=== PATIENT | female | born 1985 | race Caucasian/White ===

== ENCOUNTER 2022-01-23 10:57 | Emergency (ER) | payer SELFPAY ==
[~2022-01-23] VITALS: Ht 170.2 cm; Wt 72.1 kg
--- NOTE | 2022-01-23 11:05 | NUR ---
BIB FOR LEFT HAND LACERATION FROM CUTTING FOOD. PT LAST TDAP WAS 5 YEARS AGO. PAIN IS 10/10 ON PAIN SCALE. AWAITING MD ORDERS.
[2022-01-23] MEDS ORDERED: HYDROCODONE/APAP 5/325MG TABLET ONE (11:50)
[2022-01-23] MEDS ORDERED: HYDROCODONE/APAP 5/325MG TABLET PO ONE (12:00)
[2022-01-23] MEDS ORDERED: LIDOCAINE 1% INJ 50 ML MDV IJ ONE (12:00)
[2022-01-23] MEDS ORDERED: LIDOCAINE /MPF 1% VIAL 5 ML VIAL ONE (13:39)
--- NOTE | 2022-01-23 15:13 | NUR ---
Patient discharged to home in stable condition. Written and verbal after care instructions given. Patient verbalizes understanding of instruction.
[2022-01-23 15:14] VITALS: BP 113/76
== END 2022-01-23 15:14 | disposition home or self-care (01) ==
LOC: ER 11:03
DX: S61.412A Laceration without foreign body of left hand, initial encounter (principal); Z88.1 Allergy status to other antibiotic agents; W26.0XXA Contact with knife, initial encounter; Y93.89 Activity, other specified; Y92.89 Other specified places as the place of occurrence of the external cause; Y99.8 Other external cause status
CPT/HCPCS: 12001; 73130; 99283; J3490; A6403